=== PATIENT | female | born 1935 | race Caucasian/White ===

== ENCOUNTER 2019-10-19 08:12 | Emergency (ER) | payer MEDICARE, OTHER ==
[2019-10-19] MEDS ORDERED: MOTRIN 400 MG PO ONE (08:22)
[2019-10-19] MEDS ORDERED: TYLENOL 325 MG PO ONE (08:22)
[2019-10-19] MEDS ORDERED: NORCO 5/325 MG PO ONE (08:22)
[2019-10-19 08:25] VITALS: PULSE 65; O2SAT 98
--- NOTE | 2019-10-19 08:28 | ERPHSYRPT ---
- History of Present Illness Time Seen by Provider: 10/19/19 08:12 Source: patient, EMS Exam Limitations: no limitations Physician History: The patient is an 84-year-old female with a past medical history significant for hypertension, Parkinson's disease and who walks with a cane utilizing the right hand for balance issues presents with a chief complaint of left hip pain. Onset reportedly was 2 weeks ago according to the patient. Of note, EMS transported the patient to the emergency department for further evaluation and management after they were called to assist the patient off of the toilet because she was unable to stand due to the pain. She reportedly lives either alone or with her granddaughter and her granddaughter is currently on the way to the emergency department at this time. The patient endorsed having left hip pain but actually the pain is located in her left gluteal region. Pain is constant is progressively gotten worse over the past couple weeks. The pain is described as a aching pain that sharp pain that is nonradiating and increases whenever she ambulates or tries to go from a sitting to standing position. The patient reportedly has been taken Tylenol for the pain in her last dose of Tylenol or any pain medication was last night. Denies any recent traumatic injuries, specifically any recent falls, history of malignancy, prior episodes of left hip pain or left gluteal pain or history of arthritis in either the hip joints. She denies history of known osteoporosis and reportedly does not take oral steroids. As fever, chills and had no additional complaints at this time. Timing/Duration: other (two weeks) Severity: mild Modifying Factors: Improves With: rest, acetaminophen Associated Symptoms: No nausea, No vomiting, No abdominal pain, No shortness of breath, No heartburn, No diaphoresis, No cough, No chest pain, No headaches, No malaise, No syncope, No weakness Allergies/Adverse Reactions: Penicillins Allergy (Verified 05/14/12 10:26) HIVES Home Medications: Aspir 81 81 mg PO DAILY 05/14/12 [History] Centrum 1 tablet PO DAILY 05/14/12 [History] Flax Seed Oil 1 tab PO DAILY 05/14/12 [History] Hydrochlorothiazide 25 mg 25 mg PO DAILY 05/14/12 [History] Potassium Chloride 10 Meq Tab 10 meq PO BID 05/14/12 [History] Toprol-Xl 25MG Tablets 25 mg PO DAILY 05/14/12 [History] Vit D3/Vit E AC/Safflower Oil 1 tablet PO DAILY 05/14/12 [History] - Review of Systems Constitutional: No Fever, No Chills, No Night Sweats Ears, Nose, & Throat: No Symptoms Respiratory: No Symptoms Cardiac: No Symptoms Abdominal/Gastrointestinal: No Symptoms, No Nausea, No Vomiting Genitourinary Symptoms: No Symptoms Musculoskeletal: Joint Pain, Other (Left hip/left gluteal pain), No Back Pain, No Deformity, No Fall, No Injury, No Joint Redness Skin: No Symptoms Neurological: No Symptoms, Gait Changes, No Dizziness, No Focal Weakness, No Headache Psychological: No Symptoms Endocrine: No Symptoms Hematologic/Lymphatic: No Symptoms Immunological/Allergic: No Symptoms All Other Systems: Reviewed and Negative - Past Medical History Pertinent Past Medical History: Yes Neurological History: Other (Parkinsons) Cardiac History: No Pertinent History Respiratory History: Asthma Endocrine Medical History: Hypothyroidism Musculoskeletal History: No Pertinent History Other Medical History: Parkinson's disease - Past Surgical History Past Surgical History: Yes Gastrointestinal: Cholecystectomy - Social History Smoking Status: Never smoker Exposure to second hand smoke: No Drug Use: none Patient Lives Alone: No - Nursing Vital Signs Nursing Vital Signs: Initial Vital Signs Temperature 97.5 F 10/19/19 08:20 Pulse Rate 65 10/19/19 08:20 Respiratory Rate 18 10/19/19 08:20 Blood Pressure 162/71 10/19/19 08:20 O2 Sat by Pulse Oximetry 98 10/19/19 08:20 Pain Scale Pain Intensity 0 - Physical Exam General Appearance: no apparent distress, alert Eye Exam: PERRL/EOMI Neck Exam: supple, No JVD Respiratory Exam: normal breath sounds, lungs clear, airway intact, No chest tenderness, No respiratory distress Cardiovascular Exam: regular rate/rhythm, normal heart sounds, normal peripheral pulses, capillary refill <2 sec, other (DP 2+ bilaterally, capillary refill brisk in all toes, trace bilateral non-pitting pedal edema), No murmur, No friction rub, No gallop, No tachycardia, No pulse deficit Gastrointestinal/Abdomen Exam: soft, No tenderness, No distention, No mass Pelvic Exam: not done Rectal Exam: other (No evidence of perianal abscess, external rectal bleeding, or pilonidal cyst. No visible injury noted to buttock or discoloration) Extremity Exam: pedal edema, other (Mild tenderness over the left SI joint. No crepitus or deformity noted upon palpation of the pelvis. Pelvis was stable. No tenderness upon palpation of the L hip joint and no increased pain with passive and active flexion or extension of the R hip. No midline spine tenderness or crepitus, specifically to the L-spine. No left knee tenderness swelling, tenderness or deformity. ), No parasthesia Neurologic Exam: alert, oriented x 3, cooperative, other (Sensation to gross touch intact and equal in the L4, L5, and S1 nerve distribution of feet) Skin Exam: normal color, warm, dry, No rash, No petechiae, No jaundice SpO2 Interpretation: normal O2 Delivery: Room Air - Course Nursing assessment & vital signs reviewed: Yes - Radiology Exams Pelvis X-ray Interpretation: Reviewed by me (3 views of the SI joints demonstrates mild osteopenia, mild degenerative joint changes in both SI joints, mild to moderate lower lumbar degenerative spondylosis and few pelvic phleboliths no other bony, articular, or soft tissue abnormalities.) Hip X-ray Interpretation: Reviewed by me, Other (Mild osteopenia, mild degenerative changes of both hips, small left anterior trochanteric bone island, and few pelvic phleboliths.) Ordered Tests: Active Orders 24 hr Category Date Time Status Ambulate Patient ROUTINE Care 10/19/19 09:28 Active HIP UNI (2V) INCL PEL IF DONE Stat Exams 10/19/19 08:26 Completed SACROLILIAC JOINTS (MIN 3 VIEW Stat Exams 10/19/19 09:00 Completed BMP Stat Lab 10/19/19 08:57 Completed Medication Summary Discontinued Medications Generic Name Dose Route Start Last Admin Trade Name Romeo PRN Reason Stop Dose Admin Acetaminophen 650 mg 10/19/19 08:22 10/19/19 08:41 Tylenol 325 Mg PO 10/19/19 08:23 650 mg STAT ONE Administration Acetaminophen Confirm 10/19/19 08:39 Tylenol 325 Mg Administered 10/19/19 08:40 Dose 650 mg .ROUTE .STK-MED ONE Hydrocodone Bitart/Acetaminophen 1 tab 10/19/19 08:22 10/19/19 08:41 [place] 5/325 Mg PO 10/19/19 08:23 1 tab STAT ONE Administration Hydrocodone Bitart/Acetaminophen Confirm 10/19/19 08:38 [place] 5/325 Mg Administered 10/19/19 08:39 Dose 1 tab .ROUTE .STK-MED ONE Ibuprofen 400 mg 10/19/19 08:22 10/19/19 08:41 Motrin 400 Mg PO 10/19/19 08:23 400 mg STAT ONE Administration Ibuprofen Confirm 10/19/19 08:38 Motrin 400 Mg Administered 10/19/19 08:39 Dose 400 mg .ROUTE .STK-MED ONE Lab/Rad Data: Laboratory Result Diagrams 10/19/19 08:57 Laboratory Results 10/19/19 Range/Units 08:57 Sodium 138 (137-145) mmol/L Potassium 3.7 (3.5-5.1) mmol/L Chloride 102 (98-107) mmol/L Carbon Dioxide 30 (22-30) mmol/L Anion Gap 9.7 (5-15) MEQ/L BUN 21 H (7-17) mg/dL Creatinine 0.86 (0.52-1.04) mg/dL Estimated GFR > 60.0 ML/MIN Glucose 97 (74-106) mg/dL Calcium 9.8 (8.4-10.2) mg/dL - Progress Progress: improved Progress Note: 10/19/19 12:53 Nontoxic in appearance. The patient's complaint seems to be musculoskeletal in origin and I am suspicious the patient may be suffering from either arthritis of the SI joint/sacroiliitis, trochanteric bursitis, versus degenerative changes of the left hip. Low back pain that is referred to the left gluteal and is also on the differential as well. X-rays and labs were reviewed in order to rule out evidence of fracture, dislocation, or osteolytic lesion. He was ordered to eval for evidence of chronic kidney disease given that I was going to recommend her taking NSAIDs for anti-inflammatory therapy and for pain. Ultimately, the patient's granddaughter arrived to the room and stated she would stay with the patient to assist her at home. I recommended that she follow-up with her primary care provider to inquire about the need for physical therapy and to take naproxen scheduled twice a day for the next 5 days in addition to Tylenol every 4-6 hours for pain as needed. And the daughter agreed with and verbally understood the discharge plan. Counseled pt/family regarding: lab results, diagnosis, need for follow-up, rad results - Departure Departure Disposition: Home Clinical Impression: SI joint arthritis, Left hip pain Condition: Stable Critical Care Time: No Referrals: CORDELL HUERTA MD [Primary Care Provider] - Instructions: Arthritis and Exercise Additional Instructions: Please follow-up with your primary care provider and inquire about the need for physical therapy for your left gluteal pain that could be due to arthritis from your SI joint or from possible trochanteric bursitis. Please take Tylenol in addition to a low-dose naproxen scheduled for relief of your pain and please use your walker to help assist ambulating. Prescriptions: Acetaminophen Susp [Tylenol Suspension 160 mg/5 ml] 975 mg PO STAT #120 bottle Naproxen 500 mg [Naprosyn 500 MG] 250 mg PO BID #10 tablet
[2019-10-19] MEDS ORDERED: MOTRIN 400 MG ONE (08:38)
[2019-10-19] MEDS ORDERED: NORCO 5/325 MG ONE (08:38)
[2019-10-19] MEDS ORDERED: TYLENOL 325 MG ONE (08:39)
--- NOTE | 2019-10-19 09:11 | XRAY ---
Indication: Left SI joint and left hip pain 2 weeks. No known injury. Comparison: None AP pelvis and 2 views of the left hip demonstrates mild osteopenia, minimal degenerative changes of both hips, small left intertrochanter bone island, and a few pelvic phleboliths. No other bony, articular, or soft tissue abnormalities.
--- NOTE | 2019-10-19 09:13 | XRAY ---
Indication: Left SI joint and left hip pain 2 weeks. No known injury. Comparison: None 3 views of the SI joints demonstrates mild osteopenia, minimal degenerative changes of both SI joints, mild/moderate lower lumbar degenerative spondylosis, and a few pelvic phleboliths. No other bony, articular, or soft tissue abnormalities.
[2019-10-19 10:12] LABS: BLOOD UREA NITROGEN 21 mg/dL (7-17); CHLORIDE 102 mmol/L (98-107); Calcium 9.8 mg/dL (8.4-10.2); Carbon Dioxide 30 mmol/L (22-30); Creatinine 1 0.86 mg/dL (0.52-1.04); Glucose 97 mg/dL (74-106); Potassium 3.7 mmol/L (3.5-5.1); SODIUM 138 mmol/L (137-145)
[2019-10-19 10:18] LABS: ANION GAP 9.7 MEQ/L (5-15)
[2019-10-19 10:19] VITALS: BP 158/70
== END 2019-10-19 10:44 | disposition home or self-care (01) ==
LOC: ED 08:12
DX: M47.898 Other spondylosis, sacral and sacrococcygeal region (principal); M25.552 Pain in left hip
CPT/HCPCS: 36415; 72202; 73502; 80048; 99284; A9270-GY